=== PATIENT | female | born 1960 | race Caucasian/White ===

== ENCOUNTER 2018-08-05 12:25 | Outpatient (CLI) | payer MEDICARE | END 2018-08-05 12:26 | disposition home or self-care (01) | LOC: CP 12:25 | PROVIDERS: ATTEND Family Medicine | DX: R05 Cough (principal) | CPT/HCPCS: 94060; 94727 ==

== ENCOUNTER 2018-08-12 14:38 | Outpatient (CLI) | payer MEDICARE ==
--- NOTE | 2018-08-12 15:58 | RAD ---
TWO VIEWS OF THE RIGHT HEEL: INDICATION: Right heel pain. COMPARISON: Right foot radiograph dated 05/29/2017. FINDINGS: There is prominent enthesopathic change off the calcaneus. No acute fracture or subluxation is noted . IMPRESSION: Worsening enthesopathic change of the calcaneus when compared to the prior dated 05/29/2017. POS: [facility]
== END 2018-08-12 14:39 | disposition home or self-care (01) ==
LOC: BICRAD 14:38
PROVIDERS: ATTEND Podiatrist
DX: M79.671 Pain in right foot (principal)

== ENCOUNTER 2019-03-25 14:36 | Outpatient (CLI) | payer MEDICARE ==
--- NOTE | 2019-03-25 15:45 | MMO ---
Bilateral MAMMO Bilat Screen [facility]. CLINICAL HISTORY: Patient is 58 years old and is seen for screening. The patient has no family history of breast cancer. The patient has no personal history of cancer. VIEWS: The views performed were: bilateral craniocaudal with tomosynthesis and bilateral mediolateral oblique with tomosynthesis. FILMS COMPARED: The present examination has been compared to prior imaging studies performed at [facility] on 02/19/2017, and at [facility] on 12/09/2013. MAMMOGRAM FINDINGS: The breasts are almost entirely fat. There are no suspicious masses, suspicious calcifications, or new areas of architectural distortion. IMPRESSION: THERE IS NO MAMMOGRAPHIC EVIDENCE OF MALIGNANCY. A ROUTINE FOLLOW-UP MAMMOGRAM IN 1 YEAR IS RECOMMENDED. THE RESULTS OF THIS EXAM WERE SENT TO THE PATIENT. ACR BI-RADS Category 1 - Negative MAMMOGRAPHY NOTE: 1. A negative mammogram report should not delay a biopsy if a dominant of clinically suspicious mass is present. 2. Approximately 10% to 15% of breast cancers are not detected by mammography. 3. Adenosis and dense breasts may obscure an underlying neoplasm.
== END 2019-03-25 14:37 | disposition home or self-care (01) ==
LOC: BICMAMMO 14:36
PROVIDERS: ATTEND Family Medicine
DX: Z12.31 Encounter for screening mammogram for malignant neoplasm of breast (principal)
CPT/HCPCS: 77063; 77067

== ENCOUNTER 2019-11-11 06:15 | Outpatient (CLI) | payer MEDICARE | END 2019-11-11 06:16 | disposition home or self-care (01) | LOC: LABBT 06:15 | PROVIDERS: ATTEND Obstetrics & Gynecology | DX: Z01.810 Encounter for preprocedural cardiovascular examination (principal); N63.10 Unspecified lump in the right breast, unspecified quadrant | CPT/HCPCS: 93005; 93010 ==

== ENCOUNTER 2019-11-15 05:49 | Day surgery (SDC) | payer MEDICARE ==
[2019-11-11 12:03] VITALS: BMI 28.5
[2019-11-11 13:20] LABS: Hemoglobin 14.5 g/dL (12.0-16.0); Mean Corpuscular HGB CONC 31.6 g/dL (32.0-36.0); Mean Corpuscular Hemoglobin 29.7 pg (27.0-31.0); Mean Corpuscular Volume 94.2 fL (78.0-98.0); Mean Platelet Volume 8.9 fL (7.4-10.4); Platelet Count 297 thou/uL (130-400); RBC Distribution Width 12.2 % (11.5-14.5); Red Blood Cell (RBC) Count 4.87 mill/uL (4.20-5.40); White Blood Cell (WBC) Count 7.5 thou/uL (4.8-10.8)
[2019-11-11 13:39] LABS: Anion Gap 13 mmol/L (10-20); BUN (Urea Nitrogen) 11 mg/dL (9.8-20.1); Calc. Creatinine Clearance 0 mL/min (70-130); Calcium 9.8 mg/dL (7.8-10.44); Carbon Dioxide 27 mmol/L (22-29); Chloride 104 mmol/L (98-107); Estimated GFR-MDRD 80; Glucose 78 mg/dL (70-105); Potassium 3.9 mmol/L (3.5-5.1); Sodium 140 mmol/L (136-145)
[2019-11-11 13:44] LABS: Band 1 % (5-11); Eosinophils 2 % (0-10); Lymphocytes 45 % (21-51); MDiff Complete? YES; Monocytes 5 % (0-10); Neutrophil 43 % (42-75); Platelet Morphology Comment Appears Adequate; RBC Morphology Normal; Reactive Lymphocytes 3 % (0-10)
[2019-11-15] MEDS ORDERED: Gabapentin 300 MG CAP ONE (06:14)
[2019-11-15] MEDS ORDERED: Famotidine/PF 20 mg/2ml Vial ONE (06:14)
[2019-11-15] MEDS ORDERED: CeleCOXIB 100 MG CAP ONE (06:15)
[2019-11-15] MEDS ORDERED: HYDROmorphone 2 MG/ML VIAL ONE (06:27)
[2019-11-15] MEDS ORDERED: Fentanyl 100 MCG/2 ML VIAL ONE (06:27)
[2019-11-15] MEDS ORDERED: Midazolam HCl 2 mg/2 ml Vial ONE (06:44)
[2019-11-15] MEDS ORDERED: Ondansetron PF 4 MG/2 ML Vial ONE (06:44)
[2019-11-15] MEDS ORDERED: Acetaminophen 500 MG TAB ONE (06:56)
[2019-11-15] MEDS ORDERED: Lidocaine 1% w/Epinephrine 1:100K 20 ML VIAL ONE (07:14)
[2019-11-15] MEDS ORDERED: Bupivacaine PF 0.5% 30 ML VIAL ONE (07:14)
[2019-11-15] MEDS ORDERED: Bisacodyl 10 MG SUPP PR PRN (09:52)
[2019-11-15] MEDS ORDERED: Simethicone Chewable 80 MG TAB PO PRN (09:52)
[2019-11-15] MEDS ORDERED: Zolpidem Tartrate 5 MG TAB PO PRN (09:52)
[2019-11-15] MEDS ORDERED: Morphine 4 MG/ML VIAL SLOW IVP PRN (09:52)
[2019-11-15] MEDS ORDERED: HYDROcodone/Acetaminophen 5/325 mg Tablet PO PRN ×2 (09:52)
[2019-11-15] MEDS ORDERED: Promethazine HCl 25 MG/ML VIAL IM PRN (09:52)
[2019-11-15] MEDS ORDERED: Ondansetron PF 4 MG/2 ML Vial IVP PRN (09:52)
[2019-11-15] MEDS ORDERED: diphenhydrAMINE 25 MG CAP PO PRN (09:52)
[2019-11-15] MEDS ORDERED: ePHEDrine/0.9% NaCl/PF SYRINGE 50 mg/10 ml ONE (09:53)
[2019-11-15] MEDS ORDERED: Lidocaine 1% PF 5 ML VIAL ONE (09:53)
[2019-11-15] MEDS ORDERED: PROPOFOL 200 MG/20 ML VIAL ONE (09:53)
[2019-11-15] MEDS ORDERED: Rocuronium Bromide 10 MG/ML (10ML VIAL) ONE (09:53)
[2019-11-15] MEDS ORDERED: Dexamethasone 20 MG/5 ML VIAL ONE (09:53)
[2019-11-15] MEDS ORDERED: Glycopyrrolate 0.2 MG/ML 5 ML SYRINGE ONE (09:53)
[2019-11-15] MEDS: Ketorolac Tromethamine 30 MG/ML VIAL IVP SCH ×2 (14:04→14:22)
[2019-11-15] MEDS: Sodium Chloride 0.9% 1,000 ML IV SCH ×2 (14:24→23:04)
[2019-11-16] MEDS: Ketorolac Tromethamine 30 MG/ML VIAL IVP SCH (00:25)
[2019-11-16 05:58] LABS: Hemoglobin 12.5 g/dL (12.0-16.0); Mean Corpuscular HGB CONC 32.4 g/dL (32.0-36.0); Mean Corpuscular Hemoglobin 30.7 pg (27.0-31.0); Mean Corpuscular Volume 94.6 fL (78.0-98.0); Mean Platelet Volume 9.2 fL (7.4-10.4); Platelet Count 236 thou/uL (130-400); RBC Distribution Width 12.3 % (11.5-14.5); Red Blood Cell (RBC) Count 4.09 mill/uL (4.20-5.40)
[2019-11-16] MEDS ORDERED: Ibuprofen 800 MG TAB PO SCH (06:00)
[2019-11-16 06:19] LABS: Anion Gap 11 mmol/L (10-20); BUN (Urea Nitrogen) 10 mg/dL (9.8-20.1); Calc. Creatinine Clearance 107 mL/min (70-130); Calcium 8.4 mg/dL (7.8-10.44); Carbon Dioxide 24 mmol/L (22-29); Chloride 109 mmol/L (98-107); Estimated GFR-MDRD 88; Glucose 93 mg/dL (70-105); Potassium 3.6 mmol/L (3.5-5.1); Sodium 140 mmol/L (136-145)
[2019-11-16] MEDS: Sodium Chloride 0.9% 1,000 ML IV SCH (06:43)
[2019-11-16 08:36] VITALS: BP 124/63; TEMP 98.1
--- NOTE | 2019-11-16 08:38 | OP ---
DATE OF PROCEDURE: 11/15/2019 PREOPERATIVE DIAGNOSES: 1. Chronic pelvic pain. 2. Right adnexal cyst presumed to be a right hydrosalpinx. 3. Uterine fibroids. POSTOPERATIVE DIAGNOSES: 1. Chronic pelvic pain. 2. Right hydrosalpinx and uterine fibroids. PROCEDURES PERFORMED: Robotic total laparoscopic hysterectomy with a bilateral salpingo-oophorectomy and lysis of omental adhesions. [employer]: CAMILO Vance COMPLICATIONS: None. ESTIMATED BLOOD LOSS: 50 mL. IV FLUIDS: 1500 mL. URINE OUTPUT: 350 mL of clear urine. FINDINGS: Normal-appearing external genitalia. Normal vaginal and cervical epithelium. A 6 cm uterus with small uterine fibroids. Evidence of a prior left salpingectomy. Normal-appearing bilateral ovaries and a right hydrosalpinx. INDICATIONS FOR THE PROCEDURE: Ms. Maryanne Carolina is a 59-year-old, G1, P0, who presented initially for followup following an imaging that was done due to abdominal pain and was incidentally found to have a right cystic adnexal mass, which was thought to be hydrosalpinx and the patient was followed with serial ultrasounds over the last few months and this persisted. The patient also began having chronic lower abdominal and pelvic pain. The patient also had uterine fibroids. She has not had any postmenopausal bleeding. The patient was counseled on options and due to the persistence of this presumed right hydrosalpinx as well as her discomfort, she elected to have a hysterectomy and preferred to have both hysterectomy along with bilateral salpingo-oophorectomy. DESCRIPTION OF PROCEDURE: The patient was brought to the operating room. She was placed under general anesthesia. The patient was placed in dorsal lithotomy position using Kenton stirrups. She was prepped and draped in a sterile fashion. She was given Ancef 2 g for surgical prophylaxis. An official time-out was performed. A single-sided speculum was placed in the vagina. The anterior aspect of the cervix was grasped using single-tooth tenaculum. The cervix was sequentially dilated using Dio dilators. The uterus was sounded to approximately 6 cm. A 6 cm CALIN manipulator was then inserted. A 3.5 cm cup was selected and placed. The Schneider catheter was also placed with a syringe that could be used for backfilling. Gloves were changed and attention was turned to the abdominal portion. An umbilical incision was made using the scalpel. The Veress needle was inserted into the peritoneal cavity noting a normal pressure. The abdomen was insufflated using carbon dioxide. The Veress needle was removed and a 12 mm trocar was then placed at this site. The robotic camera was inserted and the anatomy was evaluated. There was a thick omental adhesions just inferior to this site. The lateral aspects of the abdomen were able to be seen clearly. Therefore, the business banking sales assistant ports could be placed. Two robotic ports were placed, one on the right and one on the left aspect of the abdomen. An additional 11 mm business banking sales assistant port was then placed on the right aspect of the abdomen. At this point, an 8.5 mm camera was then exchanged and the original umbilical trocar site was able to be evaluated noting no bowel or adhesions underneath this site. Therefore, it was only omental adhesion. The robot was then docked to the patient. The instruments were then inserted under direct visualization. The omental adhesions on the anterior aspect of the abdomen were then lysed using monopolar scissors until the pelvis could be fully evaluated. The uterus, fallopian tubes and ovaries were then evaluated. The hysterectomy was first began on the left aspect. The left ovary was elevated. The left IP ligament was identified. The left ureter was difficult to completely see the complete course due to the dense fibrous tissue from her previous history of endometriosis. However, the left IP ligament was coagulated multiple times at its most distal origin. This was then transected. This was carried down inferior to the utero-ovarian ligament. The left round ligament was then coagulated multiple times and transected. The left broad ligament was then entered and the posterior aspect of the broad ligament was undermined and transected down toward the level of the uterosacral ligament. The anterior aspect of the broad ligament was also entered allowing some inferior reflection of the bladder. At this point, the left uterine vessels were further skeletonized. Attention was then turned over to the right aspect. The right ovary was also grasped and elevated and pulled medially. The right ureter course was identified transperitoneally in its entirety. The right IP ligament was then coagulated multiple times and transected. The right hydrosalpinx was removed in this process and still connected to the uterus and ovary. The tissue was then followed underneath the right fallopian tube creating hemostasis. The right round ligament was then coagulated multiple times and transected. The broad ligament on the right aspect was also entered. The posterior leaf of the broad ligament was undermined and transected down towards the uterosacral ligament. Attention was turned to the anterior aspect. During this process, it was noted that the manipulator cup was not completely flushed with the ectocervix as it was hard to delineate the exact location of the cup. Therefore, I scrubbed back in and took off the 3.5 cup and replaced it with a 3 cm cup and this improved the uterine manipulation. The remainder of the hysterectomy was then performed. The anterior dissection was performed. Meticulous dissection of the bladder was back filled multiple times to ensure proper identification of the dome of the bladder versus adhesions. The bilateral uterine vessels were then skeletonized thoroughly. The right uterine vessels were then coagulated multiple times and transected creating hemostasis. Attention was then turned to the left uterine vessels, which were also coagulated multiple times and also transected. There were some slight bleeding after transection that was quickly controlled with additional cautery and this right uterine vessel was hemostatic. The colpotomy was then performed in a circumferential fashion starting anteriorly and completing it posteriorly until the cervix and vaginal tissue were completely . The uterine manipulator, cervix, uterus, bilateral fallopian tubes and ovaries were then removed through the vagina without difficulty. The pelvis was then irrigated and cleared of all clot and debris. The small areas of bleeding along the cuff were controlled using bipolar cautery. The cuff was closed in a running fashion using 2-0 Stratafix suture. The pelvis was again irrigated and cleared of all clot and debris. All sites were hemostatic with the pressure decreased and the bladder was also back filled once more noting to have no injury. The instruments were then removed and the robot was undocked from the patient. The patient was taken out of Trendelenburg position. The fascia at the 12 mm umbilical site was closed using 0 Vicryl and the skin was closed using 4-0 Monocryl and Dermabond. The patient tolerated the procedure well. There were no complications. All counts were correct x2. Job ID: [id number]
[2019-11-16] MEDS ORDERED: FLUoxetine HCl 20 MG CAP PO SCH (09:00)
[2019-11-16] MEDS ORDERED: Fluticasone Propionate Nasal Spray 16 gm Bottle NASAL SCH (09:00)
[2019-11-16] MEDS ORDERED: Fenofibrate Nanocrystallized 145 MG TAB PO SCH (09:00)
--- NOTE | 2019-11-16 09:28 | PRG ---
DATE OF SERVICE: 11/16/2019 HISTORY OF PRESENT ILLNESS: Postoperative day #1 status post robotic assisted total laparoscopic hysterectomy with a bilateral salpingo-oophorectomy. SUBJECTIVE: The patient reports minimal pain, only soreness this morning. She denies any vaginal bleeding. She is voiding and ambulating without difficulty. The patient has tolerated an oral intake with a regular diet and also is passing flatus. OBJECTIVE: VITAL SIGNS: Blood pressure is 124/63, pulse is 66, respiratory rate is 20, oxygen saturation is 96%, and temperature is 98.1 degrees Fahrenheit. GENERAL: No acute distress. CARDIOVASCULAR: Regular rate. RESPIRATORY: Unlabored breathing. ABDOMEN: Soft. Minimal distention. Incision is clean, dry, and intact with suture and Dermabond. Mild tenderness to palpation as expected postoperatively. EXTREMITIES: No edema. Negative Homans. LABORATORY DATA: White blood cells 11, hemoglobin 12.5, hematocrit is 38.7, and platelet is 236. Creatinine is 0.69. ASSESSMENT: Postoperative day #1 status post robotic assisted total laparoscopic hysterectomy with a bilateral salpingo-oophorectomy. PLAN: The patient is meeting all requirements for discharge. She will be discharged home next morning with followup scheduled in two weeks. Job ID: [id number] [facility]
--- NOTE | 2019-11-16 20:48 | DIS ---
DATE OF ADMISSION: 11/15/2019 DATE OF DISCHARGE: 11/16/2019 ADMISSION DIAGNOSIS: Postoperative pain control, status post robotic-assisted total laparoscopic hysterectomy with bilateral salpingo-oophorectomy. DISCHARGE DIAGNOSIS: Postoperative pain control, status post robotic-assisted total laparoscopic hysterectomy with bilateral salpingo-oophorectomy. BRIEF HOSPITAL COURSE: Ms. Maryanne Carolina is a 59-year-old female, who underwent a robotic-assisted total laparoscopic hysterectomy with bilateral salpingo-oophorectomy due to chronic pelvic pain related to the right hydrosalpinx as well as uterine fibroids. Her intraoperative and postoperative courses were benign. She is meeting all requirements for discharge home. MEDICATIONS: Lincoln 5/325 mg 1 tablet q 6 hr PRN pain, #30, no refills Motrin 800 mcg 1 tablet q 8 hr PRN pain, #60, no refills FOLLOWUP: Two weeks. DIET: Regular diet. ACTIVITY RESTRICTIONS: No heavy lifting, pushing, or pulling x6 weeks and pelvic rest x6 weeks. Job ID: [id number] [facility]
== END 2019-11-16 09:32 | disposition home or self-care (01) ==
LOC: SDC 05:49 → 3SE 11:55 → SDC 11-16 09:32
PROVIDERS: ATTEND Obstetrics & Gynecology
PROC: 0UT94ZZ Resection of Uterus, Percutaneous Endoscopic Approach (ICD-10-PCS; principal; 2019-11-15)
PROC: 0UT24ZZ Resection of Bilateral Ovaries, Percutaneous Endoscopic Approach (ICD-10-PCS; 2019-11-15)
PROC: 0UT74ZZ Resection of Bilateral Fallopian Tubes, Percutaneous Endoscopic Approach (ICD-10-PCS; 2019-11-15)
DX: N84.0 Polyp of corpus uteri (principal); N80.0 Endometriosis of uterus; D25.2 Subserosal leiomyoma of uterus; N83.291 Other ovarian cyst, right side; N87.9 Dysplasia of cervix uteri, unspecified; N72 Inflammatory disease of cervix uteri; N70.11 Chronic salpingitis; G89.29 Other chronic pain; R10.2 Pelvic and perineal pain; Z79.899 Other long term (current) drug therapy; Z88.5 Allergy status to narcotic agent
CPT/HCPCS: 36415; 80048; 85007; 85027; 86850; 86900; 86901; 88307; J0690; J1100; J1170; J1885; J2001; J2250; J2405; J2704; J3010; S0020; S0028

== ENCOUNTER 2020-05-22 13:38 | Outpatient (CLI) | payer MEDICARE ==
--- NOTE | 2020-05-22 14:06 | MMO ---
Bilateral MAMMO Bilat Screen [facility]. CLINICAL HISTORY: Patient is 59 years old and is seen for screening. The patient has no family history of breast cancer. The patient has no personal history of cancer. VIEWS: The views performed were: bilateral craniocaudal with tomosynthesis and bilateral mediolateral oblique with tomosynthesis. FILMS COMPARED: The present examination has been compared to prior imaging studies performed at [facility] on 02/19/2017 and 03/25/2019, and at [facility] on 12/09/2013. This study has been interpreted with the assistance of computer-aided detection. MAMMOGRAM FINDINGS: The breasts are almost entirely fat. There are no suspicious masses, suspicious calcifications, or new areas of architectural distortion. IMPRESSION: THERE IS NO MAMMOGRAPHIC EVIDENCE OF MALIGNANCY. A ROUTINE FOLLOW-UP MAMMOGRAM IN 1 YEAR IS RECOMMENDED. THE RESULTS OF THIS EXAM WERE SENT TO THE PATIENT. ACR BI-RADS Category 1 - Negative MAMMOGRAPHY NOTE: 1. A negative mammogram report should not delay a biopsy if a dominant of clinically suspicious mass is present. 2. Approximately 10% to 15% of breast cancers are not detected by mammography. 3. Adenosis and dense breasts may obscure an underlying neoplasm. Reported by: LAKISHA LEGGETT MD Electonically Signed: [id number]
== END 2020-05-22 13:39 | disposition home or self-care (01) ==
LOC: BICMAMMO 13:38
PROVIDERS: ATTEND Family Medicine
DX: Z12.31 Encounter for screening mammogram for malignant neoplasm of breast (principal)
CPT/HCPCS: 77063; 77067

== ENCOUNTER 2020-12-28 15:11 | Outpatient (CLI) | payer MEDICARE ==
[~2020-12-28 15:11] MED LIST: Magnevist 469MG/ML 20 ML VIAL ONE
--- NOTE | 2020-12-28 17:07 | MRI ---
Exam: Brain MRI with and without contrast HISTORY: Edema bilateral orbits. Worsening vision x1-2 years. COMPARISON: None FINDINGS: Brain MRI: Gradient echo sequence: No hemorrhage Calvarium: Appropriate T1 marrow signal intensity Midline brain parenchyma: Unremarkable Cerebrum:No parenchymal mass, mass effect or midline shift. Brain volume is age-appropriate. Cortical chapa-white differentiation is preserved. Minimal scattered T2 and FLAIR white matter hyperintensities are nonspecific. Ventricles: No evidence of hydrocephalus. Sinuses and mastoid air cells: Adequate aeration Diffusion: Central arterial flow is maintained. Absent restricted diffusion. Postcontrast images: No pathologic enhancement of the brain parenchyma. Orbit MRI: Optic chiasm, prechiasmatic optic nerves, intracanalicular and intraorbital optic nerves have symmetr ic size and signal intensity. There is no evidence of enhancing lesion. There is symmetric signal intensity of the ocular rectus muscles. There is no abnormal signal intensi ty intraconal and extraconal fat. Bilateral ocular lenses are appropriately located. There is prominence of the left and right superior ophthalmic vein. No obvious cavernous sinus thromb osis or fistula. Symmetric signal intensity lacrimal glands Visualized pituitary gland has a normal appearance. Pituitary stalk is midline. IMPRESSION: 1. No acute intracranial process. 2. No pathologic enhancement the brain parenchyma 3. Absent restricted diffusion. No acute infarct 4. Prominent bilateral superior ophthalmic veins without obvious cavernous sinus thrombosis or fistul a. Oswaldo T Transcribed Date/Time: 12/28/2020 7:28 PM
== END 2020-12-28 15:12 | disposition home or self-care (01) ==
LOC: BICMRI 15:11
PROVIDERS: ATTEND Ophthalmology
DX: H05.223 Edema of bilateral orbit (principal)
CPT/HCPCS: 70553; A9579

== ENCOUNTER 2022-06-12 09:59 | Outpatient (CLI) | payer MEDICARE | END 2022-06-12 10:00 | disposition home or self-care (01) | LOC: BICMAMMO 09:59 | PROVIDERS: ATTEND Family Medicine | DX: Z12.31 Encounter for screening mammogram for malignant neoplasm of breast (principal) | CPT/HCPCS: 77063; 77067 ==

== ENCOUNTER 2023-06-29 15:10 | Outpatient (CLI) | payer MEDICARE | END 2023-06-29 15:11 | disposition home or self-care (01) | LOC: BICMAMMO 15:10 | PROVIDERS: ATTEND Family Medicine | DX: N63.10 Unspecified lump in the right breast, unspecified quadrant (principal) | CPT/HCPCS: 76642; 77066; G0279 ==